=== PATIENT | female | born 1985 | race Caucasian/White ===

== ENCOUNTER 2020-01-31 09:43 | Emergency (ER) | payer OTHER ==
[~2020-01-31] VITALS: Ht 165.1 cm; Wt 63.5 kg
[2020-01-31 11:06] LABS: ABSOLUTE LYMPHOCYTES 1.4 thou/uL (0.8-5.3); ABSOLUTE MONOCYTES 0.3 thou/uL (0.0-1.2); ABSOLUTE NEUTROPHILS 5.5 thou/uL (1.6-8.1); BASOPHILS 0.2 %; EOSINOPHILS 0.3 %; HEMOGLOBIN 12.5 gm/dL (12.0-15.0); MCH 29.7 pg (26.0-34.0); MCHC 32.9 g/dL (28.0-37.0); MCV 90.4 fL (80.0-100.0); MONOCYTES 3.5 %; MPV 7.5 fl. (7.2-11.1); NUCLEATED RBCS 0 /100WBC; PLATELET COUNT* 311 thou/uL (150-400); RDW-CV 14.1 % (10.5-14.5); WBC 7.2 thou/uL (4.0-11.0)
[2020-01-31 11:20] LABS: CALCIUM 8.5 mg/dL (8.5-10.1); CREATININE 0.7 mg/dL (0.6-1.3)
[2020-01-31 11:24] LABS: ALBUMIN 3.4 g/dL (3.4-5.0); TOTAL BILIRUBIN 0.7 mg/dL (<0.1-1.0); TOTAL PROTEIN 8.6 g/dL (6.4-8.2)
[2020-01-31 11:59] VITALS: BP 120/60
--- NOTE | 2020-02-01 12:33 | EKG ---
[place] [address] ELECTROCARDIOGRAM REPORT Name: JACI FRANK Gaby Room: [facility]#: [id number] Admission: 01/31/20 Attend Phys: Discharge: 01/31/20 Date of : 81 Date of Service: 01/31/20 1004 Report #: [id number] THIS REPORT FOR: //name// [facility] ED Test Date: 2020-01-31 Test Time: 10:04:30 Pat Name: JACI FRANK Department: Room: Gender: F Meterman: MARGA : 1985 Requested By: Nancie Starks Order Number: [id number] MD: Yahir Alexandre Measurements Intervals [place] Rate: 69 P: 68 [place]: 154 QRS: 50 QRSD: 99 T: 35 QT: 395 QTc: 423 Interpretive Statements Sinus rhythm No previous ECG available for comparison Electronically Signed On 02-01-2020 12:33:10 CDT by Yahir Alexandre [email or web address] <ELECTRONICALLY SIGNED> By: Lorrie Alexandre MD, [facility] 02/01/20 1233 1004 1004 Lorrie Alexandre MD, [facility] /EPI
== END 2020-01-31 11:59 ==
LOC: M.ERS 09:43
PROVIDERS: Personal Emergency Response Attendant
DX: F11.23 Opioid dependence with withdrawal (principal)

== ENCOUNTER 2020-02-01 14:21 | Emergency (ER) | payer OTHER ==
[~2020-02-01] VITALS: Ht 154.9 cm; Wt 63.5 kg
[2020-02-01 15:24] VITALS: BP 135/70
== END 2020-02-01 15:24 ==
LOC: M.ERS 14:21
DX: F11.23 Opioid dependence with withdrawal (principal); R11.2 Nausea with vomiting, unspecified

== ENCOUNTER 2020-02-02 01:21 | Emergency (ER) | payer OTHER | END 2020-02-02 02:57 | disposition home or self-care (01) | LOC: M.ERS 01:21 | DX: F11.23 Opioid dependence with withdrawal (principal); R11.2 Nausea with vomiting, unspecified; F17.210 Nicotine dependence, cigarettes, uncomplicated ==